=== PATIENT | female | born 1980 | race Caucasian/White ===

== ENCOUNTER 2016-10-23 20:34 | Emergency (ER) | payer MEDICAID ==
[2016-10-23 20:44] VITALS: BP 140/95
== END 2016-10-23 22:15 | disposition home or self-care (01) ==
LOC: ED 20:34
DX: J18.9 Pneumonia, unspecified organism (principal); I10 Essential (primary) hypertension; F31.9 Bipolar disorder, unspecified; F17.200 Nicotine dependence, unspecified, uncomplicated
CPT/HCPCS: J0696; J7512; J7613

== ENCOUNTER 2016-11-06 16:31 | Emergency (ER) | payer MEDICAID ==
[~2016-11-06] VITALS: Ht 162.6 cm; Wt 88.0 kg
[2016-11-06 19:07] LABS: BASOPHIL % 0.3 % (0-2); PLATELET COUNT 276 x10^3mcL (130-400); RED CELL DISTRIBUTION WIDTH 13.4 % (11.5-14.5)
[2016-11-06 19:45] VITALS: BP 140/94
== END 2016-11-06 19:45 | disposition home or self-care (01) ==
LOC: ED 16:31
PROVIDERS: Emergency Medicine
DX: N93.8 Other specified abnormal uterine and vaginal bleeding (principal)
CPT/HCPCS: 36415

== ENCOUNTER 2016-12-11 02:00 | Emergency (ER) | payer MEDICAID ==
[~2016-12-11] VITALS: Ht 157.5 cm; Wt 198.0 kg
[2016-12-11 05:06] VITALS: BP 160/108
== END 2016-12-11 05:06 | disposition home or self-care (01) ==
LOC: ED 02:00
DX: S51.811A Laceration without foreign body of right forearm, initial encounter (principal); I10 Essential (primary) hypertension; F41.9 Anxiety disorder, unspecified; F32.9 Major depressive disorder, single episode, unspecified; Y08.89XA Assault by other specified means, initial encounter; Y93.89 Activity, other specified; Y99.8 Other external cause status; Y92.89 Other specified places as the place of occurrence of the external cause
CPT/HCPCS: 90715

== ENCOUNTER 2017-09-22 03:59 | Emergency (ER) | payer MEDICAID ==
[2017-09-22 06:02] VITALS: BP 138/94
== END 2017-09-22 06:02 | disposition home or self-care (01) ==
LOC: ED 03:59
DX: S63.639A Sprain of interphalangeal joint of unspecified finger, initial encounter (principal); I10 Essential (primary) hypertension; X58.XXXA Exposure to other specified factors, initial encounter; Y93.89 Activity, other specified; Y92.89 Other specified places as the place of occurrence of the external cause; Y99.8 Other external cause status
CPT/HCPCS: Q0092

== ENCOUNTER 2018-07-04 22:45 | Emergency (ER) | payer BC ==
[~2018-07-04] VITALS: Ht 160 cm; Wt 95.3 kg
[2018-07-04 22:47] VITALS: Ht 160 cm; Wt 95.3 kg
[2018-07-04 23:30] VITALS: BP 137/84
== END 2018-07-04 23:30 | disposition short-term general hospital (02) ==
LOC: ED 22:45
DX: Z34.83 Encounter for supervision of other normal pregnancy, third trimester (principal); I10 Essential (primary) hypertension; F41.9 Anxiety disorder, unspecified; F32.9 Major depressive disorder, single episode, unspecified; Z98.890 Other specified postprocedural states

== ENCOUNTER 2018-09-08 22:54 | Emergency (ER) | payer BC ==
[~2018-09-08] VITALS: Ht 162.6 cm; Wt 64.4 kg
[2018-09-08 23:23] VITALS: BP 121/101; Ht 162.6 cm; Wt 64.4 kg
== END 2018-09-09 01:12 | disposition home or self-care (01) ==
LOC: ED 22:54
DX: S50.01XA Contusion of right elbow, initial encounter (principal); I10 Essential (primary) hypertension; F41.9 Anxiety disorder, unspecified; F32.9 Major depressive disorder, single episode, unspecified; W07.XXXA Fall from chair, initial encounter; Y93.89 Activity, other specified; Y92.89 Other specified places as the place of occurrence of the external cause; Y99.9 Unspecified external cause status

== ENCOUNTER 2019-01-05 18:19 | Emergency (ER) | payer BC, MEDICAID ==
[~2019-01-05] VITALS: Ht 157.5 cm; Wt 65.8 kg
[2019-01-05 18:25] VITALS: Ht 157.5 cm; Wt 65.8 kg
[2019-01-05 20:39] LABS: microscopic required? YES; urine erythrocyte 1+ (NEGATIVE)
[2019-01-05 20:40] LABS: BASOPHIL % 0.3 % (0-2); PLATELET COUNT 269 x10^3mcL (130-400)
[2019-01-05 20:43] LABS: RED CELL DISTRIBUTION WIDTH 17.7 % (11.5-14.5)
[2019-01-05 23:16] VITALS: BP 150/94
== END 2019-01-05 23:16 | disposition home or self-care (01) ==
LOC: ED 18:19
PROVIDERS: Emergency Medicine
DX: O03.9 Complete or unspecified spontaneous abortion without complication (principal); O99.341 Other mental disorders complicating pregnancy, first trimester; F17.210 Nicotine dependence, cigarettes, uncomplicated; F41.9 Anxiety disorder, unspecified; F32.9 Major depressive disorder, single episode, unspecified; Z59.0 Homelessness; Z3A.00 Weeks of gestation of pregnancy not specified
CPT/HCPCS: 36415; 90715; 99406

== ENCOUNTER 2019-12-26 00:31 | Emergency (ER) | payer MEDICAID ==
[~2019-12-26] VITALS: Ht 160 cm; Wt 70.3 kg
[2019-12-26 00:43] VITALS: Ht 160 cm; Wt 70.3 kg
[2019-12-26 02:44] VITALS: BP 145/82
== END 2019-12-26 02:44 | disposition home or self-care (01) ==
LOC: ED 00:31
DX: O23.42 Unspecified infection of urinary tract in pregnancy, second trimester (principal); Z3A.24 24 weeks gestation of pregnancy
CPT/HCPCS: Q0092